=== PATIENT | male | born 1995 | race Caucasian/White ===

== ENCOUNTER 2019-06-05 17:25 | Emergency (ER) | payer MEDICAID ==
[~2019-06-05] VITALS: Ht 180.3 cm; Wt 100.0 kg
[~2019-06-05 17:25] MED LIST: ALBU6.7H9 INH; ALPR1TAB7 PO; BUPR1FIL3 SL
[2019-06-05 18:07] VITALS: BP 117/87
== END 2019-06-05 18:09 | disposition home or self-care (01) ==
LOC: ER 17:26
DX: S50.01XA Contusion of right elbow, initial encounter (principal); M54.5 Low back pain; Z88.0 Allergy status to penicillin; Z79.899 Other long term (current) drug therapy; Z56.0 Unemployment, unspecified; W18.39XA Other fall on same level, initial encounter; Y93.89 Activity, other specified; Y92.828 Other wilderness area as the place of occurrence of the external cause; Y99.8 Other external cause status
CPT/HCPCS: 73090; 99284

== ENCOUNTER 2021-07-30 13:21 | Emergency (ER) | payer MEDICAID ==
[~2021-07-30] VITALS: Ht 180.3 cm; Wt 127.3 kg
[2021-07-30] MEDS ORDERED: LEVO500T90 PO (13:29)
[2021-07-30] MEDS ORDERED: FLUT16SP11 BOTHNARES (13:29)
[2021-07-30] MEDS ORDERED: METH4TAB3 PO (13:29)
[2021-07-30 13:44] VITALS: BP 143/100
== END 2021-07-30 13:49 | disposition home or self-care (01) ==
LOC: ER 13:22
DX: J01.10 Acute frontal sinusitis, unspecified (principal); R09.81 Nasal congestion; R51.9 Headache, unspecified; R50.9 Fever, unspecified; F12.90 Cannabis use, unspecified, uncomplicated; Z56.0 Unemployment, unspecified; Z88.0 Allergy status to penicillin; Z79.2 Long term (current) use of antibiotics; Z79.899 Other long term (current) drug therapy
CPT/HCPCS: 99283

== ENCOUNTER 2021-09-18 15:09 | Emergency (ER) | payer MEDICAID ==
[~2021-09-18 15:09] MED LIST changes: +FLUT16SP11 BOTHNARES; +METH4TAB3 PO
== END 2021-09-18 17:59 | disposition home or self-care (01) ==
LOC: ER 15:09
DX: M54.9 Dorsalgia, unspecified (principal); Z53.21 Procedure and treatment not carried out due to patient leaving prior to being seen by health care provider